=== PATIENT | female | born 1985 | race Caucasian/White ===

== ENCOUNTER → 2017-07-24 14:57 | Outpatient (CLI) | payer OTHER, SELFPAY ==
[2017-07-24 15:23] LABS: Basophils % 0.5 % (0.1-2.0); Eosinophils # 0.2 K/mm3 (0.0-0.4); Hematocrit 39.2 % (37.0-47.0); Hemoglobin 13.2 g/dL (12.2-16.2); Lymphocytes # 2.5 K/mm3 (0.7-4.5); Lymphocytes % 34.1 K/mm3 (10-50); Mean Corpuscular HGB Conc 33.7 g/dL (31.8-35.4); Mean Corpuscular Hemoglobin 30.9 pg (27.0-31.2); Mean Corpuscular Volume 91.7 fl (81-99); Mean Platelet Volume 9.1 fl (7.4-10.4); Monocytes # 0.5 K/mm3 (0.1-1.0); Monocytes % 6.3 % (1.7-9.3); Neutrophils # 4.2 K/mm3 (1.8-7.8); Platelet Count 223 K/mm3 (142-424); Red Blood Count 4.27 M/mm3 (4.20-5.40); Red Cell Distribution Width 12.5 % (11.5-17.5); White Blood Count 7.3 K/mm3 (4.8-10.8)
[2017-07-24 15:49] LABS: Alanine Aminotransferase 37 U/L (12-78); Albumin Level 4.1 gm/dL (3.4-5.0); Albumin/Globulin Ratio 1.1 (1.1-1.8); Alkaline Phosphatase 77 U/L (46-116); Anion Gap 10.6 mEq/L (5-15); Aspartate Amino Transferase 19 U/L (15-37); Bilirubin,Total 0.2 mg/dL (0.2-1.0); Blood Urea Nitrogen 12 mg/dL (7-18); CKMB Relative Index 0.6 U/L (0-4.0); Calcium 8.9 mg/dL (8.5-10.1); Carbon Dioxide 28 mmol/L (21.0-32.0); Chloride 103 mmol/L (98-107); Creatine Kinase 135 U/L (26-192); Creatine Kinase MB 0.8 mg/ml (0.0-3.6); Creatinine,Serum 0.81 mg/dL (0.55-1.02); Estimated Glomerular Filt Rate 82 ml/min (>60); GFR (African American) 99 ML/MIN (>60); Globulin 3.6 gm/dl (1.3-3.2); Glucose 135 mg/dL (74-106); Potassium 3.6 mmoL/L (3.5-5.1); Sodium 138 mmol/L (136-145); Total Protein,Serum 7.7 gm/dL (6.4-8.2); Troponin I < 0.02 ng/ml (0.00-0.06)
[2017-07-24 17:37] LABS: CKMB Relative Index 0.7 U/L (0-4.0); Creatine Kinase 137 U/L (26-192); Creatine Kinase MB 0.9 mg/ml (0.0-3.6); Troponin I < 0.02 ng/ml (0.00-0.06)
== END ==
PROVIDERS: PCP Internal Medicine Adolescent Medicine; Visit Provider Internal Medicine Adolescent Medicine
DX: R07.9 Chest pain, unspecified (principal)
CPT/HCPCS: 36415; 80053; 82550; 82553; 84484; 85025

== ENCOUNTER → 2017-07-28 06:22 | Outpatient (CLI) | payer OTHER, SELFPAY ==
--- NOTE | 2017-07-28 06:28 | NM_ITS ---
History and Indications: Chest pain, family history abnormal EKG Procedure: Patient exercised on Humberto protocol 10 minutes and 41 seconds, resting heart rate was 77 bpm resting blood pressure 133/71, with exercise maximum heart rate achieved was 180 bpm which is equal to 96% of the maximum predicted heart rate and a blood pressure was 170/78. Test was started due to shortness of breath, patient denied any complained of chest pain, patient has good exercise capacity achieved 12.8mets of workload on treadmill, the blood pressure response to exercise was adequate. Electrocardiogram: Resting electrocardiogram showed sinus rhythm rightward axis, with exercise there is less than 1.[address] segment depression noted from the baseline EKG. The EKG portion of the exercise Myoview is negative for ischemia. Cardiac stress and resting SPECT images: Cardiac stress and the suspect images were obtained using Tc 99 Myoview 10.1 mCi at rest and 32.2 mCi at stress, gated SPECT further analysis of segmental wall motion and calculation of the ejection fraction also done. Cardiac stress and resting SPECT images show mild fixed defect in the anterior wall with normal contractility on the gated SPECT is likely secondary to soft tissue attenuation, no reversible ischemia seen. Computer derived ejection fraction is 63% with no obvious regional wall motion abnormality, right ventricle is normal size and contractility. Conclusion: 1. The EKG portion of the exercise Myoview is negative for ischemia. Patient has good exercise capacity achieved 12.8mets of workload on treadmill, the blood pressure response to exercise was adequate. There was no exercise-induced chest discomfort 2. No obvious scintigraphic evidence of reversible ischemia seen. Computer derived ejection fraction 63% with no obvious regional wall motion abnormality, right ventricle is normal size and contractility.
== END ==
PROVIDERS: Family Provider Internal Medicine Adolescent Medicine; PCP Internal Medicine Adolescent Medicine; Visit Provider Internal Medicine Adolescent Medicine
DX: R07.9 Chest pain, unspecified (principal)
CPT/HCPCS: 78452; 93017; A9502

== ENCOUNTER → 2018-03-25 13:29 | Outpatient (CLI) | payer OTHER, SELFPAY ==
--- NOTE | 2018-03-25 13:40 | XR_ITS ---
XR chest 2V HISTORY: ITS.REASON: PERSISTANT COUGH X 3 WEEKS ORDERING PHYSICIAN: Sarah Dorsey PATIENT AGE: 32 years COMPARISON: None FINDINGS: The cardiomediastinal silhouette and pulmonary vascularity are within normal limits. The lungs are clear without infiltrates, suspicious nodules, or pleural effusions. No acute bony abnormalities. IMPRESSION: Negative chest, no acute finding
== END ==
PROVIDERS: PCP Internal Medicine Adolescent Medicine; Visit Provider Nurse Practitioner Family
DX: R05 Cough (principal)
CPT/HCPCS: 71046

== ENCOUNTER → 2020-01-15 10:46 | Outpatient (CLI) | payer OTHER, SELFPAY ==
[2020-01-16 08:26] LABS: Covid-19 Nasal PCR Sendout UK NOT DETECTED
== END ==
PROVIDERS: PCP Internal Medicine Adolescent Medicine; Visit Provider Internal Medicine Adolescent Medicine
DX: Z20.828 Contact with and (suspected) exposure to other viral communicable diseases (principal)
CPT/HCPCS: U0003

== ENCOUNTER → 2020-08-03 10:18 | Outpatient (CLI) | payer OTHER, SELFPAY ==
--- NOTE | 2020-08-03 10:39 | CT_ITS ---
PROCEDURE: CT ABDOMEN PELVIS W CON CLINICAL INDICATION: MID EPIGASTRIC PAIN, X SEVERAL DAYS COMPARISON: No exams were available for comparison TECHNIQUE: IV Contrast: 75ML Isovue 370 Oral Contrast None Axial images obtained with sagittal and coronal reformats. All CT scans at the facility use one or more dose reduction, viz: automated exposure control, ma/kV adjustment per patient size (including targeted exams where dose is matched to indication, i.e. head), or iterative reconstruction technique. FINDINGS: LOWER THORAX: No acute finding ABDOMEN & PELVIS: The liver, spleen, adrenal glands, pancreas, and kidneys have an unremarkable appearance. No renal or ureteral calculi. Unremarkable appearing gallbladder. There is a mild amount of retained colonic feces. No intestinal obstruction or free air. No bowel wall thickening. Unremarkable appendix. There is an IUD in place. No pelvic mass or abnormal fluid collection. No acute bony findings. IMPRESSION: No acute finding. Negative CT abdomen and pelvis. Dictated by: Logan Hussein MD 08/03/2020 11:06 Logan Hussein MD in [facility] 08/03/2020 11:06
[2020-08-03 10:47] LABS: Basophils % 0.5 % (0.1-2.0); Eosinophils # 0.1 K/mm3 (0.0-0.4); Hematocrit 43.2 % (37.0-47.0); Hemoglobin 13.8 g/dL (12.2-16.2); Lymphocytes # 1.7 K/mm3 (0.7-4.5); Lymphocytes % 35.7 % (10-50); Mean Corpuscular Hemoglobin 30.1 pg (27.0-31.2); Mean Corpuscular Volume 93.9 fl (81-99); Mean Platelet Volume 8.4 fl (7.4-10.4); Monocytes # 0.3 K/mm3 (0.1-1.0); Monocytes % 7.2 % (1.7-9.3); Neutrophils # 2.5 K/mm3 (1.8-7.8); Neutrophils % 53.7 % (37.0-80.0); Platelet Count 210 K/mm3 (142-424); Red Blood Count 4.61 M/mm3 (4.20-5.40); Red Cell Distribution Width 12.5 % (11.5-17.5); White Blood Count 4.7 K/mm3 (4.8-10.8)
[2020-08-03 10:51] LABS: Chloride 103 mmol/L (98-107); Potassium 4.5 mmoL/L (3.5-5.1); Sodium 140 mmol/L (136-145)
[2020-08-03 10:53] LABS: Blood Urea Nitrogen 13 mg/dl (7-17); Estimated Glomerular Filt Rate 82 ml/min (>60); GFR (African American) 99 ML/MIN (>60)
[2020-08-03 10:54] LABS: Alanine Aminotransferase 30 U/L (12-78); Albumin Level 5.1 g/dl (3.5-5.0); Albumin/Globulin Ratio 1.4 (1.1-1.8); Alkaline Phosphatase 56 U/L (38-126); Anion Gap 12.5 mEq/L (5-15); Aspartate Amino Transferase 31 U/L (14-36); Bilirubin,Total 0.4 mg/dl (0.2-1.3); Carbon Dioxide 29 mmol/L (22.0-30.0); Globulin 3.6 g/dL (1.3-3.2); Glucose 106 mg/dl (74-100); Lipase 41 U/L (23-300); Total Protein,Serum 8.7 g/dl (6.3-8.2)
== END ==
PROVIDERS: PCP Internal Medicine Adolescent Medicine; Visit Provider Internal Medicine Adolescent Medicine
DX: R10.11 Right upper quadrant pain (principal)
CPT/HCPCS: 36415; 74177; 80053; 82565; 83690; 84520; 85025; Q9967

== ENCOUNTER → 2021-07-24 09:09 | Outpatient (CLI) | payer BC, SELFPAY | PROVIDERS: PCP Internal Medicine Adolescent Medicine; Visit Provider Nurse Practitioner | DX: Z20.822 Contact with and (suspected) exposure to COVID-19 (principal) | CPT/HCPCS: C9803; U0003; U0005 ==

== ENCOUNTER 2022-06-18 08:00 | Outpatient (RCR) | payer BC, SELFPAY ==
--- NOTE | 2022-05-14 10:04 | [facility].PTOPEV ---
PT Outpatient Evaluation Rehab PT Outpatient Evaluation Start: 05/14/22 08:03 Freq: Status: Active Protocol: Document 05/14/22 08:03 AARON (Rec: 05/14/22 10:04 AARON [id number]) E-signed By Adriana Wright, PT Outpatient Therapy Subjective History Subjective History Pt is a 37 y/o female that reports onset of neck and bilateral upper trapezius pain ~10 weeks ago. 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 Pt denies trauma, injury, paresthesia, or headaches. Pt denies having imaging of the cervical or thoracic spine. 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 Pt reports her shoulders feel heavy and she has intermittent sharp pain in the neck to the shoulder blade. Pt reports pain is better in the mornings and worse throughout the day and at the end of the week. Pt reports she takes Ibuprofen OTC for pain that helps sometimes and was prescribed a muscle relaxer that she plans on picking up and taking tonight. 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
--- NOTE | 2022-06-11 08:59 | HMH.RHREAS ---
Rehab Reassessment Rehab OP Re-assessment Start: 06/11/22 08:05 Freq: Status: Active Protocol: Document 06/11/22 08:05 KRISTIELIO (Rec: 06/11/22 08:59 KRISTIELIO [id number]) E-signed By Adriana Wright PT Rehab Re-assessment Subjective Subjective Pt reports she feels 75% improved since starting PT. Pt reports pain consistently stays around 2-3 of the lwoer neck and bilateral upper trapezius mm. Pt reports pain at worst as 5/10 within the last week. Pt reports she has been using a cervical pillow as recommended with improved pain in the mornings, continues to have worst pain at the end of the day following working on her computer. Pt reports she is compliant with her HEP and is more aware of her posture while working on the computer. Objective Objective Notes Cervical AROM: flex 45, ext 45 , RLF 45, LLF40, Rrot 60, Lrot 65 scapular MMT: 10/01 Assessment Progress Assessment Progressing as Expected Assessment Notes Pt has attended 7 PT visits consisting of aerobic exercise , cervical mm stretching, UE/ scapular strengthening, postural reeducation exercises , workspace ergonomic education, manual therapy, and modalities with good tolerance. Pt demonstrated improved cervical AROM with lateral flexion and rotation this date, improved pain severity, and improved scapular strength compared to initial evaluation. Pt would continue to benefit from skilled PT to further improve pain severity, cervical AROM, scapular strength and functional activity tolerance to improve overall QOL. Patient goals met ST/6 Goals Not Met LTG Revised Goals
== END 2022-06-18 08:05 | disposition home or self-care (01) ==
LOC: PT 08:00
PROVIDERS: PCP Internal Medicine Adolescent Medicine; Visit Provider Internal Medicine Adolescent Medicine
DX: M54.2 Cervicalgia (principal); M25.512 Pain in left shoulder; M25.511 Pain in right shoulder
CPT/HCPCS: 20560; 97010; 97014; 97110; 97112; 97140; 97163; 97164; 97530; G0283